=== PATIENT | male | born 1990 | race Two or more races ===

== ENCOUNTER 2017-05-02 12:34 | Observation (INO) | payer OTHER ==
[2017-05-02 13:36] LABS: ABS Basophils 0 10^3/ul (0-0.2); ABS Eosinophils 0 10^3/ul (0-0.6); ABS Lymphocytes 1.2 10^3/ul (1.0-4.8); ABS Monocytes 0.6 10^3/ul (0-0.8); ABS Nucleated RBC 0 10^3/ul; Eosinophil % 0.2 % (0-6); Hematocrit 46 % (42-52); Hemoglobin 15.6 g/dl (14.0-18.0); Lymphocyte % 15.1 % (25-47); Mean Corpuscular HGB Conc 34 g/dl (31-36); Mean Corpuscular Hemoglobin 29 pg (27-31); Mean Corpuscular Volume 86 fL (80-94); Mean Platelet Volume 9 um3 (7.4-10.4); Nucleated Red Blood Cells % 0.1; Platelet Count 179 10^3/ul (150-450); Red Blood Count 5.32 10^6/ul (4.0-5.4); Red Cell Distribution Width 13 % (10.5-15); White Blood Count 7.8 10^3/ul (3.5-10.8)
[2017-05-02 13:54] LABS: EGFR Non-African American 84.1 (>60)
[2017-05-02 16:15] LABS: Urine Appearance Clear; Urine Blood Negative (Negative); Urine Color Yellow; Urine Ketones 1+ (Negative); Urine Protein Negative (Negative); Urine Specific Gravity 1.024 (1.010-1.030); Urine Urobilinogen Negative (Negative)
[2017-05-02] MEDS ORDERED: Iodixanol* (CONTRAST) 320 MG/ML 100 ML SDV IV ONE (18:35)
[2017-05-02] MEDS ORDERED: Piperacillin/Tazobac ADVAN(*) 3.375 GM in NS 0.9% 100 ML* 100 ML IVPB ONE (19:59)
--- NOTE | 2017-05-02 20:00 | RAD ---
Indication: Right lower quadrant pain. Contrast: Administered 88.2 ml of VISAPAQUE 320 mg/ml CT of the abdomen and pelvis was performed after oral and IV contrast administration. Coronal and sagittal reconstructed images were obtained. Lung bases demonstrate no pleural fluid, nodules or masses. Heart is of normal size without evidence of pericardial effusion. Liver is normal in size. No focal lesions or intrahepatic ductal dilatation is noted. Gallbladder demonstrates no calcified gallstones. No pericholecystic fluid or wall thickening is noted. The spleen is normal in size. The pancreas demonstrates no mass or pancreatic duct dilatation. No adrenal masses are noted. The kidneys demonstrate symmetric nephrograms. No retroperitoneal adenopathy is noted. No dilated loops of bowel are noted. CT of the pelvis demonstrates a tubular fluid-filled structure which is retrocecal in nature in the right lower quadrant consistent with enlarged appendix. This measures 9 mm in diameter. Infiltration of fat is noted suggestive of inflammatory changes The appendix. No evidence of periappendiceal abscess is noted. No bowel obstruction is noted. No free fluid is identified. The prostate and seminal vesicles are grossly unremarkable. The bony structures are grossly unremarkable. IMPRESSION: Findings consistent with appendicitis. Dr. Alvarez was notified of the results at 1956 hours
[2017-05-02] MEDS ORDERED: Famotidine IV* 10 MG/ML 2 ML (20 mg) IV ONE (20:21)
--- NOTE | 2017-05-02 22:44 | ED ---
Cj Chacon Angela, scribed for Pato Wright MD on 05/02/17 at 1433 . Abdominal Pain/Male - HPI Summary HPI Summary: This pt is a 26 y/o male presenting to [facility] c/o RLQ abd pain x3 days. Pt reports that his pain has been worsening in the past couple of days. Today pt woke up with a fever. Pt rates his pain 1/10 in severity at rest. His pain is rated 6/10 in severity with movement. Denies nausea, vomiting, diarrhea, constipation. Pt has had similar pain before approx. 1 year ago. PMHx: type 1 DM. Pt has an insulin pump. - History of Current Complaint Chief Complaint: EDAbdPain Stated Complaint: LOWER RIGHT ABD PAIN, FEVER Time Seen by Provider: 05/02/17 14:26 Hx Obtained From: Patient Onset/Duration: Lasting Days, Still Present Timing: Lasting Days Severity Currently: Mild Pain Intensity: 1 Pain Scale Used: 0-10 Numeric Location: Discrete At: RLQ Radiates: No Aggravating Factor(s): Movement Alleviating Factor(s): Other: - Rest Associated Signs And Symptoms: Positive: Fever. Negative: Nausea, Vomiting, Diarrhea - Allergies/Home Medications Allergies/Adverse Reactions: Allergies Allergy/AdvReac Type Severity Reaction Status Date / Time No Known Allergies Allergy Verified 03/16/14 15:22 PMH/Surg Hx/FS Hx/Imm Hx Endocrine/Hematology History: Reports: Hx Diabetes - type 1 Cardiovascular History: Denies: Hx Hypertension - Immunization History Date of Tetanus Vaccine: UNK Infectious Disease History: No Infectious Disease History: Denies: Traveled Outside the [place] in Last 30 Days - Family History Known Family History: Negative: Cardiac Disease, Hypertension, Diabetes - Social History Alcohol Use: Occasionally Substance Use Type: Reports: None Smoking Status (MU): Never Smoked Tobacco Review of Systems Positive: Fever. Negative: Chills Positive: Abdominal Pain. Negative: Vomiting, Diarrhea, Nausea, Other - constipation Musculoskeletal: Negative Skin: Negative Neurological: Negative All Other Systems Reviewed And Are Negative: Yes Physical Exam - Summary Physical Exam Summary: VITAL SIGNS: Reviewed. GENERAL: Patient is a well-developed and nourished male who is lying comfortable in the stretcher. Patient is not in any acute respiratory distress. HEAD AND FACE: No signs of trauma. No ecchymosis, hematomas or skull depressions. No sinus tenderness. EYES: PERRLA, EOMI x 2, No injected conjunctiva, no nystagmus. EARS: Hearing grossly intact. Ear canals and tympanic membranes are within normal limits. MOUTH: Oropharynx within normal limits. NECK: Supple, trachea is midline, no adenopathy, no JVD, no carotid bruit, no c- spine tenderness, neck with full ROM. CHEST: Symmetric, no tenderness at palpation LUNGS: Clear to auscultation bilaterally. No wheezing or crackles. CVS: Regular rate and rhythm, S1 and S2 present, no murmurs or gallops appreciated. ABDOMEN: Soft. Pt has RLQ abdominal tenderness. No signs of distention. No rebound no guarding, and no masses palpated. Bowel sounds are normal. Pt has an insulin pump on his abdomen. EXTREMITIES: FROM in all major joints, no edema, no cyanosis or clubbing. NEURO: Alert and oriented x 3. No acute neurological deficits. Speech is normal and follows commands. SKIN: Dry and warm Triage Information Reviewed: Yes Vital Signs On Initial Exam: Initial Vitals Temp Pulse Resp BP Pulse Ox 99.3 F 112 18 164/81 100 05/02/17 12:59 05/02/17 12:59 05/02/17 12:59 05/02/17 12:59 05/02/17 12:59 Vital Signs Reviewed: Yes Diagnostics - Vital Signs Vital Signs Temp Pulse Resp BP Pulse Ox 05/02/17 12:59 99.3 F 112 18 164/81 100 - Laboratory Lab Results: Lab Results 05/02/17 05/02/17 05/02/17 Range/Units 13:24 13:24 13:24 WBC 7.8 (3.5-10.8) 10^3/ul RBC 5.32 (4.0-5.4) 10^6/ul Hgb 15.6 (14.0-18.0) g/dl Hct 46 (42-52) % MCV 86 (80-94) fL MCH 29 (27-31) pg MCHC 34 (31-36) g/dl RDW 13 (10.5-15) % Plt Count 179 (150-450) 10^3/ul MPV 9 (7.4-10.4) um3 Neut % (Auto) 77.0 (38-83) % Lymph % (Auto) 15.1 L (25-47) % Ector % (Auto) 7.3 (1-9) % Eos % (Auto) 0.2 (0-6) % Baso % (Auto) 0.4 (0-2) % Absolute Neuts (auto) 6.0 (1.5-7.7) 10^3/ul Absolute Lymphs (auto) 1.2 (1.0-4.8) 10^3/ul Absolute Monos (auto) 0.6 (0-0.8) 10^3/ul Absolute Eos (auto) 0 (0-0.6) 10^3/ul Absolute Basos (auto) 0 (0-0.2) 10^3/ul Absolute Nucleated RBC 0 10^3/ul Nucleated RBC % 0.1 Sodium 137 (133-145) mmol/L Potassium 4.0 (3.5-5.0) mmol/L Chloride 104 (101-111) mmol/L Carbon Dioxide 27 (22-32) mmol/L Anion Gap 6 (2-11) mmol/L BUN 18 (6-24) mg/dL Creatinine 1.05 (0.67-1.17) mg/dL Est GFR ( Amer) 108.2 (>60) Est GFR (Non-Af Amer) 84.1 (>60) BUN/Creatinine Ratio 17.1 (8-20) Glucose 144 H (70-100) mg/dL Lactic Acid 0.8 (0.5-2.0) mmol/L Calcium 9.6 (8.6-10.3) mg/dL Total Bilirubin 0.70 (0.2-1.0) mg/dL AST 19 (13-39) U/L ALT 15 (7-52) U/L Alkaline Phosphatase 42 (34-104) U/L C-Reactive Protein 34.56 H (< 5.00) mg/L Total Protein 7.7 (6.4-8.9) g/dL Albumin 4.6 (3.2-5.2) g/dL Globulin 3.1 (2-4) g/dL Albumin/Globulin Ratio 1.5 (1-3) Lipase 21 (11.0-82.0) U/L Result Diagrams: 05/02/17 13:24 05/02/17 13:24 Lab Statement: Any lab studies that have been ordered have been reviewed, and results considered in the medical decision making process. Abdominal Pain Fem Course/Dx - Course Course Of Treatment: This pt is a 26 y/o male presenting to [facility] c/o RLQ abd pain x3 days. Pt reports that his pain has been worsening in the past couple of days. Today pt woke up with a fever. Pt rates his pain 1/10 in severity at rest. His pain is rated 6/10 in severity with movement. Denies nausea, vomiting , diarrhea, constipation. Pt has had similar pain before approx. 1 year ago. PMHx: type 1 DM. Pt has an insulin pump. Test result without any significant abnormalities, except for increase CRP of35.5. Pt is still c/o RLQ pain. CT has been ordered. The pt has not drank all the contrast yet, so the official time for the CT will be at 19:30. Therefore the pt will be signed out to Dr. Alvarez, for further work up, management and disposition. - Diagnoses Differential Diagnosis/HQI/PQRI: Appendicitis, Constipation, Diverticulitis, Renal Colic Provider Diagnoses: Acute appendicitis Discharge - Discharge Plan Condition: Stable Disposition: OTHER Discharge Disposition Comment: signed out to Dr. Alvarez, pending dispo, awaiting CT A/P Referrals: [facility] [place] - [place] K[facility]D [Primary Care Provider] - The documentation as recorded by the Cj blum Angela accurately reflects the service I personally performed and the decisions made by me, Pato Wright MD.
[2017-05-03] MEDS ORDERED: Ondansetron INJ* 2 MG/ML VIAL IV PRN (00:01)
[2017-05-03] MEDS ORDERED: HYDROmorphone INJ* 2 MG/ML CARPUJECT SYRINGE IV PRN (00:01)
[2017-05-03] MEDS ORDERED: Dextrose 50% Syringe 50 ML* 25 GM/50 ML SYRINGE IV PUSH PRN (00:11)
--- NOTE | 2017-05-03 00:45 | HP ---
HISTORY AND PHYSICAL: DATE OF ADMISSION: 05/02/17 CHIEF COMPLAINT: Right lower quadrant abdominal pain. HISTORY OF PRESENT ILLNESS: This is a 26-year-old [place] gentleman, presenting to the [facility] Emergency Room with a 3-day history of abdominal pain localizing to the right lower quadrant over the past 24 hours. He had not noted any issues with anorexia until today. He did note that he slept poorly last night and today woke up with a fever. His pain is provoked by a movement, coughing and sneezing. It is palliated by rest. He denies nausea or vomiting. He had an episode of diarrhea in the emergency room after his CT scan. He notes he had the similar episode of pain approximately a year ago, but that resolved. PAST MEDICAL HISTORY: Significant for type 1 diabetes. PAST SURGICAL HISTORY: None. MEDICATIONS: Insulin. ALLERGIES: None. FAMILY HISTORY: Mother has a history of heart problems and thyroid disease. His father has a history of appendicitis. SOCIAL HISTORY: Does not use tobacco or drugs. He occasionally drinks alcohol. 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. REVIEW OF SYSTEMS: Constitutional: As above. Cardiac: No chest pain or dyspnea on exertion. Pulmonary: No wheezes or cough. GI: As above. : No dysuria or hematuria. Endocrine: As above. No thyroid disease. Musculoskeletal: No arthralgias or myalgias. Neuro: No strokes or seizures. PHYSICAL EXAMINATION VITAL SIGNS: He is 5 feet 6 inches tall, 155 pounds. Temperature 98.7, pulse 86, respirations 18, blood pressure 133/72, and O2 sat 98% on room air. HEENT: Head is normocephalic and atraumatic. Sclerae anicteric. Mucous membranes are moist. There is no otorrhea and no rhinorrhea. NECK: Symmetrical and trachea is midline. He has no palpable lymphadenopathy or masses. LUNGS: Clear to auscultation bilaterally without wheezes, rales, or rhonchi. HEART: Regular, S1 and S2. No murmurs, rubs, or gallops appreciated. ABDOMEN: Without scars. It is nondistended. Bowel sounds are present. It is soft with tenderness in the right lower quadrant with no rebound or guarding. EXTREMITIES: Warm without cyanosis, clubbing, or edema. DIAGNOSTIC STUDIES/LAB DATA: WBCs are 7.8, hemoglobin of 15.6, platelets 179. Chemistry is normal except for glucose elevated at 144, his CRP is elevated at 34. LFTs are normal. Lipase is normal. Urinalysis, positive ketones, otherwise normal. CT scan images were reviewed from 05/02/17, findings are notable for a tubular fluid-filled structure, which is retrocecal and measuring 9 mm in diameter with fatty infiltration with no evidence of abscess. IMPRESSION: A 26-year-old male with type 1 diabetes who has early appendicitis. PLAN/RECOMMENDATIONS: I discussed the findings with the patient and his significant other who accompanies him. We discussed the management options and I recommended laparoscopic appendectomy. The nature of this procedure, the indications, risks, benefits, and alternatives were discussed. The risks were explained including, but not limited to bleeding, infection, pain, scarring, blood clots, pneumonia, nausea, vomiting, reaction to medications, the risk of needing an open procedure, and the risks of general anesthesia. The patient had an opportunity to ask questions. All his questions were answered. He stated his understanding. He does agree to proceed. He will be made n.p.o. after midnight. We will continue Ki in the meantime. Surgery will be scheduled in the early interventionist of 05/03/17. [id number]/[facility] #: [id number] JEREMIAS
[2017-05-03] MEDS ORDERED: Piperacillin/Tazobactam VIAL*) 3.375 GM in NS 0.9% 100 ML* 100 ML IVPB SCH (03:00)
[2017-05-03] MEDS ORDERED: fentaNYL* 50 MCG/ML 2 ML VIAL (100 MCG VIAL) ONE (05:41)
[2017-05-03] MEDS ORDERED: Midazolam* 1 MG/ML 10 ML VIAL (10 MG) ONE (05:41)
[2017-05-03] MEDS ORDERED: Atracurium* 10 MG/ML 10 ML VIAL ONE (05:41)
[2017-05-03] MEDS ORDERED: KETAMINE HCL* 50 MG/ML 10 ML VIAL ONE (05:41)
[2017-05-03] MEDS ORDERED: Bupivacaine 0.25% SDV* 30 ML ONE (05:55)
[2017-05-03] MEDS ORDERED: PROCHLORPERAZINE INJ 5 MG/ML 2 ML VIAL IV PRN (06:21)
[2017-05-03] MEDS ORDERED: fentaNYL* 50 MCG/ML 2 ML VIAL (100 MCG VIAL) IV PRN (06:21)
[2017-05-03] MEDS ORDERED: DiMENhydriNATE IV* 50 MG/ML VIAL IV PUSH PRN (06:21)
[2017-05-03] MEDS ORDERED: Naloxone* 0.4 MG/ML 1 ML VIAL IV PRN (06:21)
[2017-05-03] MEDS ORDERED: Morphine INJ* 2 MG/ML 1 ML CARPUJECT IV PRN (06:21)
[2017-05-03] MEDS ORDERED: Scopolamine 1.5 mg* PATCH TRANSDERM PRN (06:21)
[2017-05-03] MEDS ORDERED: Propofol* 10 MG/ML 20 ML BTL IV PUSH ONE (06:32)
[2017-05-03] MEDS ORDERED: PROCHLORPERAZINE INJ 5 MG/ML 2 ML VIAL ONE (06:32)
[2017-05-03] MEDS ORDERED: Glycopyrrolate IV* 0.2 MG/ML 1 ML VIAL ONE (06:32)
[2017-05-03] MEDS ORDERED: Ondansetron INJ* 2 MG/ML VIAL ONE (06:32)
[2017-05-03] MEDS ORDERED: Neostigmine Methylsulfate* 2 MG/2 ML SYRINGE ONE (06:32)
[2017-05-03] MEDS ORDERED: Ketorolac INJ* 30 MG/ML 1 ML VIAL ONE (06:32)
[2017-05-03] MEDS ORDERED: Lidocaine 2% PF * 5 ML VIAL ONE (06:33)
[2017-05-03] MEDS ORDERED: oxyCODONE/Acetamin 5/325 MG* TAB PO PRN (06:52)
--- NOTE | 2017-05-03 07:01 | BRIEFOPN ---
Brief Operative Note - Surgery Procedures: PRE/POSTOP DX: ACUTE APPENDICITIS PROC: LAP APPENDECTOMY SURG: MECENAS ASSIST: NONE ANES: GET; FELLOWS EBL: MIN IVF: 850 ML LR SPEC: APPENDIX DRAIN: NONE COMPL: NONE COND: STABLE; EXTUBATED, TO RR FINDINGS: EARLY APPENDICITIS.
[2017-05-03] MEDS ORDERED: oxyCODONE/Acetamin 5/325 MG* TAB ONE (07:20)
[2017-05-03] MEDS ORDERED: DiMENhydriNATE IV* 50 MG/ML VIAL ONE (07:24)
[2017-05-03 09:03] VITALS: BP 131/69
[2017-05-03] MEDS ORDERED: Scopolamine 1.5 mg* PATCH ONE (09:17)
--- NOTE | 2017-05-03 21:34 | OP ---
[facility] * DATE OF OPERATION: 05/03/17 - ROOM #353 DATE OF : 86 SURGEON: Micky Greenwood MD GEOCHEMISTRY TEACHER: None. ANESTHESIOLOGIST: Koby Tyson MD ANESTHESIA: General endotracheal. PRE-OP DIAGNOSIS: Acute appendicitis. POST-OP DIAGNOSIS: Acute appendicitis. OPERATIVE PROCEDURE: Laparoscopic appendectomy. ESTIMATED BLOOD LOSS: Less than 10 mL. IV FLUIDS: 850 mL of crystalloid. SPECIMENS: Appendix. DRAINS: None. COMPLICATIONS: None. COUNTS: Instrument, needle, and sponge counts correct. DESCRIPTION OF PROCEDURE: The patient was brought to the operating room and placed on the table supine. Sequential compression devices were placed on both lower extremities. General anesthesia was administered. He received appropriate intravenous antibiotics. He was prepped and draped in the usual sterile fashion and time-out was performed. Local anesthetic was infiltrated into the skin and soft tissue prior to making each incision. Entry to the abdomen was through a transumbilical vertical incision using an open technique. After accessing the peritoneal cavity, a 12- mm trocar was placed and carbon dioxide was insufflated to a pressure of 15 mmHg. Under direct visualization, 5-mm trocars were placed in the suprapubic, midline, and also in the left lower quadrant. The appendix was identified in the right lower quadrant. It appeared to be acutely inflamed with no evidence of gangrenous changes or separation. The appendix was elevated and a window created at the base of the appendix through the mesentry and the mesentery was divided with the EndoGIA stapler with a rea cartridge. The base of the appendix was elevated. The appendix was divided with the Endo-SETH stapler with a keith cartridge. The appendix was placed into an endoscopic retrieval bag and retrieved through the umbilical site. Inspection revealed hemostasis to be excellent and edwin were all intact. The ports were removed under direct visualization and carbon dioxide was released. The umbilical wound was closed with 0 Vicryl in the [id number] fashion to approximate the fascia. Skin incisions were closed with 4-0 Monocryl in a subcuticular fashion. Red Level-Flex and Steri-strips were applied. The patient tolerated the procedure well. The patient was extubated and transferred to the recovery room in stable condition. [id number]/[facility] #: [id number] [facility]
[2017-05-06] MEDS ORDERED: Scopolamine PATCH Remove* 1 NOTE MISC PATCH OFF ONE (06:23)
== END 2017-05-03 09:58 | disposition home or self-care (01) ==
LOC: ED 12:34 → SSU 05-03 00:01
PROVIDERS: ADMIT Surgery; ATTEND Surgery
DX: K35.80 Unspecified acute appendicitis (principal); R10.31 Right lower quadrant pain; E10.9 Type 1 diabetes mellitus without complications
CPT/HCPCS: 36415; 74177; 80053; 81003; 83605; 83690; 85025; 86140; 88304; 96365; 96375; 99284; A9270-GY; G0378; J0780; J1240; J1885; J2250; J2405; J2543; J2704; J3010; Q9967